=== PATIENT | male | born 1950 | race Caucasian/White ===

== ENCOUNTER 2024-05-12 07:37 | Day surgery (SDC) | payer OTHER ==
[2024-05-11 13:46] VITALS: BMI 33.9
[2024-05-12 08:50] VITALS: TEMP 97.7
[2024-05-12 08:52] VITALS: BP 126/69; PULSE 59; RESP 19
== END 2024-05-12 08:54 | disposition home or self-care (01) ==
LOC: FASU-ENDO 07:37
PROVIDERS: ATTEND Internal Medicine Gastroenterology
PROC: 0DBN8ZX Excision of Sigmoid Colon, Via Natural or Artificial Opening Endoscopic, Diagnostic (ICD-10-PCS; 2024-05-12)
PROC: 0DBM8ZX Excision of Descending Colon, Via Natural or Artificial Opening Endoscopic, Diagnostic (ICD-10-PCS; principal; 2024-05-12 08:12)
DX: Z12.11 Encounter for screening for malignant neoplasm of colon (principal); D12.4 Benign neoplasm of descending colon; D12.5 Benign neoplasm of sigmoid colon; Z80.0 Family history of malignant neoplasm of digestive organs
CPT/HCPCS: 88305-TC